=== PATIENT | female | born 2000 | race Caucasian/White ===

== ENCOUNTER 2019-07-30 06:39 | Inpatient (IN) ==
[2019-07-30] MEDS ORDERED: STADOL IV PRN (06:55)
[2019-07-30] MEDS ORDERED: PEPCID IV PRN (06:55)
[2019-07-30] MEDS ORDERED: AMPICILLIN 2 GM in NS 100 ML IV ONE (06:55)
[2019-07-30] MEDS ORDERED: ZOFRAN IV PRN (06:55)
[2019-07-30] MEDS ORDERED: TYLENOL PO PRN (06:55)
[2019-07-30] MEDS ORDERED: PEPCID PO PRN (06:55)
[2019-07-30] MEDS ORDERED: KEFZOL 1 GM/D5W 1 GM/50 ML IVPB IV PRN (06:55)
[2019-07-30] MEDS ORDERED: PEPCID PO ONE (06:55)
[2019-07-30] MEDS ORDERED: REGLAN PO ONE (06:55)
[2019-07-30] MEDS ORDERED: SODIUM CHLORIDE 0.9% INJ SCH (07:00)
[2019-07-30] MEDS ORDERED: PITOCIN 30 UNITS/NS 30 UNIT/500 ML IV.SOLN IV SCH ×2 (07:00→08:30)
[2019-07-30] MEDS ORDERED: LR 1,000 ML IV SCH ×2 (07:00)
[2019-07-30] MEDS ORDERED: XYLOCAINE-MPF 1% INJ ONE (07:07)
[2019-07-30] MEDS ORDERED: PITOCIN ONE (07:31)
[2019-07-30] MEDS ORDERED: MORPHINE IV ONE (08:16)
[2019-07-30 08:23] LABS: URINE SOURCE VOIDED
[2019-07-30] MEDS ORDERED: BENADRYL IV PRN (08:24)
[2019-07-30] MEDS ORDERED: ATARAX PO PRN (08:24)
[2019-07-30] MEDS ORDERED: NORCO-10 PO PRN (08:24)
[2019-07-30] MEDS ORDERED: NORCO-5 PO PRN (08:24)
[2019-07-30] MEDS ORDERED: M-M-R II VACCINE SUBQ ONE (08:24)
[2019-07-30] MEDS ORDERED: HYDROXYZINE IM PRN (08:24)
[2019-07-30] MEDS ORDERED: XYLOCAINE-MPF 1% INJ PRN (08:24)
[2019-07-30] MEDS ORDERED: BOOSTRIX VACCINE IM ONE (08:24)
[2019-07-30] MEDS ORDERED: PERI MEDS (DERMOPLAST/NUPERCAINAL/TUCKS) MISC PRN (08:24)
[2019-07-30] MEDS ORDERED: MINERAL OIL PO PRN (08:24)
[2019-07-30] MEDS ORDERED: PITOCIN IM PRN (08:24)
[2019-07-30] MEDS ORDERED: CYTOTEC PO PRN (08:24)
[2019-07-30] MEDS ORDERED: BENADRYL PO PRN (08:24)
[2019-07-30] MEDS ORDERED: AMBIEN PO PRN (08:24)
[2019-07-30] MEDS ORDERED: PITOCIN 20 UNITS/NS 20 UNITS/1,000 ML IV.SOLN IV SCH (08:30)
[2019-07-30 08:44] LABS: BASO# 0.03 X1000 (0.0-0.2); BASO% 0.1 % (0.0-0.8); EOS# 0.03 X1000 (0.0-0.7); EOS% 0.1 % (0.0-10.0); HEMATOCRIT 33.4 % (37.0-47.0); HEMOGLOBIN 11.2 g/dL (12.0-16.0); IMM GRAN# 0.11 X1000 (0.0-0.04); IMM GRAN% 0.4 % (0.0-0.5); LYMPH# 1.67 X1000 (1.2-3.4); LYMPH% 6.6 % (20.5-51.1); MCH 29.9 PG (27-31); MCHC 33.5 g/dL (33-37); MCV 89.3 FL (81-99); MONO# 1.22 X1000 (0.11-0.59); MONO% 4.8 % (1.7-9.3); NEUT# 22.36 X1000 (1.4-6.5); PLT 171 X1000 (130-400); RBC 3.74 XMIL (4.2-5.4); RDW 13.4 % (11.5-14.5); WBC 25.42 X1000 (4.8-10.8)
[2019-07-30 08:55] LABS: UR AMPHETAMINES QUAL NONE DETECTED (NONE DETECT); UR BARBITUATES QUAL NONE DETECTED (NONE DETECT); UR BENZODIAZEPIN QUAL NONE DETECTED (NONE DETECT); UR CANNABINOIDS QUAL NONE DETECTED (NONE DETECT); UR COCAINE QUAL NONE DETECTED (NONE DETECT); UR METHADONE QUAL NONE DETECTED (NONE DETECT); UR OPIATES QUAL NONE DETECTED (NONE DETECT); UR OXYCODONE QUAL NONE DETECTED (NONE DETECT); UR PCP QUAL NONE DETECTED (NONE DETECT)
[2019-07-30 09:05] LABS: BILIRUBIN URINE NEGATIVE (NEGATIVE); BLOOD URINE SMALL (NEGATIVE); COLOR YELLOW; GLUCOSE URINE NEGATIVE (NEGATIVE); KETONE URINE TRACE mg/dL (NEGATIVE); LEUKOCYTES URINE NEGATIVE (NEGATIVE); NITRITE URINE NEGATIVE (NEGATIVE); PROTEIN URINE 50 mg/dL (NEGATIVE); SP GRAVITY URINE 1.043; TURBIDITY URINE CLEAR (CLEAR); UROBILINOGEN URINE 3 mg/dL (NORMAL)
[2019-07-30 09:12] LABS: BANDS 4 % (0-1); EOS 2 % (1-10); LYMPHS 4 % (21-51); MONO 2 % (1-9); SEGS 88 % (42-75)
[2019-07-30] MEDS ORDERED: AMPICILLIN 1 GM in NS 50 ML IV SCH (11:00)
--- NOTE | 2019-07-30 12:46 | HISTORY AND PHYSICAL ---
HISTORY OF PRESENT ILLNESS: The patient is 19-year-old white female, G 2, P 1, 33 and 2/7 weeks, presents with uterine contractions, who was noted at the time of presentation that she was 9 cm dilated. Patient reports that she had contractions the night before, but did not come to labor and delivery until this morning on 07/30/2019. She did not obtain ultrasound dating until 2nd trimester, and other pertinent information was that she is rubella nonimmune. PAST MEDICAL HISTORY: Unremarkable. PAST SURGICAL HISTORY: None. PAST OB HISTORY: G 2, P 1. Her first child was 5 pounds 14 ounces at . [employer] HISTORY: Menarche at age 10. REVIEW OF SYSTEMS: Significant for gastroesophageal reflux disease. FAMILY HISTORY: Diabetes mellitus, high blood pressure and colon cancer. SOCIAL HISTORY: Tobacco use: Half a pack per day. Alcohol use: None. She reports no illegal or illicit medications. MEDICATIONS: vitamins and Tylenol. ALLERGIES: No known drug allergies. PHYSICAL EXAMINATION: VITAL SIGNS: Height 5 feet 4 inches, weight 150 pounds, temperature 96.8 degrees, pulse 100, blood pressure 107/64, respirations 20. heart rate in the 130s with positive accelerations. HEENT: Pupils equal, round, reactive to light and accommodation. Extraocular movements intact. Oropharynx clear. NECK: Supple. No thyromegaly. LUNGS: Clear to auscultation. HEART: Regular rate and rhythm. ABDOMEN: Bowel sounds positive. Soft. The patient did have contractions roughly every 3 minutes. PELVIC: Cervix was 9 cm dilated, completely effaced, and zero station. Artificial rupture of membranes was performed at this time. EXTREMITIES: No clubbing, cyanosis, or edema noted. NEUROLOGIC: Cranial nerves 2-12 grossly intact. Motor 5/5. DTRs 2+ bilaterally. ASSESSMENT: Intrauterine 33 and 2/7 weeks in active labor. PLAN: Plan on IV antibiotics at the present time, and anticipate delivery of a infant. Nursery and behavioral therapy coordinator notified. Anticipate vaginal delivery. cc: Denzel Fucsh III, MD
[2019-07-30] MEDS: MOTRIN PO PRN ×2 (13:16→21:39)
--- NOTE | 2019-07-30 15:17 | OPERATIVE NOTE ---
PROCEDURE DATE: 07/30/2019 PROCEDURE: The patient progressed to complete and pushing. Had spontaneous vaginal delivery of a male infant, 4 pounds 8 ounces with Apgars of 9 and 9 at 0811 hours on 07/30/2019 over intact perineum. Cord blood sample was obtained at that time. Placenta was delivered intact with 3 vessel cord. A nuchal cord x1 was reduced over perineum easily. ESTIMATED BLOOD LOSS: 150 mL. ANESTHESIA: None. COUNTS: All counts were correct x2. Nursery and director medical writing were present for delivery. cc: Denzel Fuchs III, MD
[2019-07-30] MEDS: PERICOLACE PO SCH (21:39)
[2019-07-31 05:42] LABS: BASO# 0.03 X1000 (0.0-0.2); BASO% 0.2 % (0.0-0.8); EOS# 0.19 X1000 (0.0-0.7); EOS% 1.1 % (0.0-10.0); HEMATOCRIT 30.2 % (37.0-47.0); HEMOGLOBIN 9.7 g/dL (12.0-16.0); IMM GRAN# 0.07 X1000 (0.0-0.04); IMM GRAN% 0.4 % (0.0-0.5); LYMPH# 3.14 X1000 (1.2-3.4); LYMPH% 17.7 % (20.5-51.1); MCH 28.9 PG (27-31); MCHC 32.1 g/dL (33-37); MCV 89.9 FL (81-99); MONO# 1.48 X1000 (0.11-0.59); MONO% 8.3 % (1.7-9.3); MPV 12.2 FL (7.4-10.4); NEUT# 12.85 X1000 (1.4-6.5); NEUT% 72.3 % (42.2-75.2); PLT 190 X1000 (130-400); RBC 3.36 XMIL (4.2-5.4); RDW 13.4 % (11.5-14.5); WBC 17.76 X1000 (4.8-10.8)
[2019-07-31] MEDS: MOTRIN PO PRN ×2 (07:39→16:02)
--- NOTE | 2019-07-31 07:57 | OB/GYN PROGRESS NOTE ---
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 Note: Vital Signs - 24 hr 07/30/19 12:00 07/30/19 20:30 07/31/19 00:05 Temperature 98.9 F 98.1 F 97.8 F Pulse Rate 106 H 95 H 76 Respiratory Rate 18 18 16 Blood Pressure 116/63 119/66 108/63 O2 Sat by Pulse Oximetry 94 L 98 97 07/31/19 03:25 07/31/19 07:45 Temperature 97.1 F L 97.4 F L Pulse Rate 72 72 Respiratory Rate 16 18 Blood Pressure 113/64 108/62 O2 Sat by Pulse Oximetry 97 100 Laboratory Results - last 24 hr 07/30/19 07/30/19 07/30/19 07:50 07:50 08:07 WBC 25.42 H RBC 3.74 L Hgb 11.2 L Hct 33.4 L MCV 89.3 MCH 29.9 MCHC 33.5 RDW Std Deviation 13.4 Plt Count 171 MPV 12.0 H Immature Gran % (Auto) 0.4 Neut % (Auto) 88.0 H Lymph % (Auto) 6.6 L [place] % (Auto) 4.8 Eos % (Auto) 0.1 Baso % (Auto) 0.1 Immature Gran # (Auto) 0.11 H Neut # (Auto) 22.36 H Lymph # (Auto) 1.67 [place] # (Auto) 1.22 H Eos # (Auto) 0.03 Baso # (Auto) 0.03 Segmented Neutrophils 88 H Band Neutrophils 4 H Lymphocytes 4 L Monocytes 2 Eosinophils 2 Urine Source Urine Color Urine Turbidity Urine pH Ur Specific [place] Urine Protein Ur Glucose (Stick) Ur Ketones (Stick) Urine Blood Urine Nitrite Urine Bilirubin Urobilinogen Dipstick Urine Leukocytes Urine Opiates Screen NONE DETECTED Ur Oxycodone Screen NONE DETECTED Ur Methadone, Qual NONE DETECTED Ur Barbiturates Screen NONE DETECTED Ur Phencyclidine Scrn NONE DETECTED Ur Amphetamines Screen NONE DETECTED U Benzodiazepines Scrn NONE DETECTED Urine Cocaine Screen NONE DETECTED U Cannabinoids Screen NONE DETECTED RPR NON-REACTIVE 07/30/19 07/31/19 08:07 05:11 WBC 17.76 H RBC 3.36 L Hgb 9.7 L Hct 30.2 L MCV 89.9 MCH 28.9 MCHC 32.1 L RDW Std Deviation 13.4 Plt Count 190 MPV 12.2 H Immature Gran % (Auto) 0.4 Neut % (Auto) 72.3 Lymph % (Auto) 17.7 L [place] % (Auto) 8.3 Eos % (Auto) 1.1 Baso % (Auto) 0.2 Immature Gran # (Auto) 0.07 H Neut # (Auto) 12.85 H Lymph # (Auto) 3.14 [place] # (Auto) 1.48 H Eos # (Auto) 0.19 Baso # (Auto) 0.03 Segmented Neutrophils Band Neutrophils Lymphocytes Monocytes Eosinophils Urine Source VOIDED Urine Color YELLOW Urine Turbidity CLEAR Urine pH 7.0 Ur Specific [place] 1.043 Urine Protein 50 A Ur Glucose (Stick) NEGATIVE Ur Ketones (Stick) TRACE A Urine Blood SMALL A Urine Nitrite NEGATIVE Urine Bilirubin NEGATIVE Urobilinogen Dipstick 3 A Urine Leukocytes NEGATIVE Urine Opiates Screen Ur Oxycodone Screen Ur Methadone, Qual Ur Barbiturates Screen Ur Phencyclidine Scrn Ur Amphetamines Screen U Benzodiazepines Scrn Urine Cocaine Screen U Cannabinoids Screen RPR The pt is doing well. minimal lochia pain well controlled. desires Depo for control. desires circumcision for the baby VSSAF Gen: AAOx3 NAD CV: RRR no g/m/r Lungs: CTAB no w/r/r Abd: +BS soft NT/ND Ext: no c/c/e A: PPD#1 s/p PTD Anemia Elevated WBCs P: Continue pp mgmt
[2019-07-31] MEDS: PERICOLACE PO SCH (21:01)
[2019-08-01] MEDS: MOTRIN PO PRN ×2 (00:11→09:04)
--- NOTE | 2019-08-01 10:08 | OB/GYN PROGRESS NOTE ---
- Subjective PPD 2 of a male. Pt is without complaints. Baby is in the room with Mom and Dad. Fundus is firm and nontender. No calf tenderness. A/P: Baby will not be discharged today. Mom is stable for discharge home. Will discharge Mom and nurses will allow her to stay so baby can room in with Mom. Patient will f/u with Dr Young in 6 weeks. No Rx needed. She will take Motrin for pain if needed. OB Physical Exam - CONSTITUTIONAL General Appearance: appears well, alert, no apparent distress - GASTROINTESTINAL (ABDOMEN) Abdominal Exam: non tender, soft (Fundus is firm and nontender.) Active Medications Generic Name Dose Route Start Last Admin Trade Name Freq PRN Reason Stop Dose Admin Acetaminophen 650 mg 07/30/19 06:55 Tylenol PO Q4-6H PRN PRN Headache Hydrocodone Bitart/Acetaminophen 1 each 07/30/19 08:24 [place]-10 PO Q3-4H PRN PRN Pain (7-10 on Pain Scale) Hydrocodone Bitart/Acetaminophen 1 each 07/30/19 08:24 [place]-5 PO Q3-4H PRN PRN Pain (1-6 on Pain Scale) Benzocaine 1 each 07/30/19 08:24 Barbara Meds (Dermoplast/Nupercainal/Tucks) MISC 3-4XDAY PRN PRN episiotomy/hemorrhoids Butorphanol Tartrate 2 mg 07/30/19 06:55 Stadol IV PRN PRN Pain Diphenhydramine HCl 12.5 mg 07/30/19 08:24 Benadryl IV Q4H PRN PRN Itching Diphenhydramine HCl 25 mg 07/30/19 08:24 Benadryl PO Q4H PRN PRN Itching Famotidine 20 mg 07/30/19 06:55 Pepcid IV Q12H PRN PRN GI upset or indigestion Famotidine 40 mg 07/30/19 06:55 Pepcid PO Q12H PRN PRN GI upset or indigestion Hydroxyzine HCl 50 mg 07/30/19 08:24 Atarax PO Q3-4H PRN PRN Nausea Hydroxyzine HCl 50 mg 07/30/19 08:24 Hydroxyzine IM Q3-4H PRN PRN Nausea Cefazolin Sodium/Dextrose 1 gm in 50 mls @ 100 mls/hr 07/30/19 06:55 Kefzol 1 Gm/D5w IV ONCE PRN PRN SECTION Oxytocin/Sodium Chloride 20 units in 1,000 mls @ 0 mls/hr 07/30/19 08:30 Pitocin 20 Units/Ns IV .Q0M LILLIE As Directed Ibuprofen 800 mg 07/30/19 08:24 08/01/19 09:04 Motrin PO 800 mg Q8H PRN PRN Administration cramping Lidocaine HCl 30 ml 07/30/19 08:24 Xylocaine-Mpf 1% INJ PRN PRN Perineal repair Mineral Oil 30 ml 07/30/19 08:24 Mineral Oil PO PRN PRN Perineal massage Misoprostol 800 microgm 07/30/19 08:24 Cytotec PO PRN PRN Severe bleeding Ondansetron HCl 4 mg 07/30/19 06:55 Zofran IV PRN PRN Nausea Oxytocin 20 unit 07/30/19 08:24 Pitocin IM PRN PRN Severe bleeding Senna/Docusate Sodium 1 each 07/30/19 21:00 07/31/19 21:01 Pericolace PO 1 each QHS LILLIE Administration Sodium Chloride 5 - 10 ml 07/30/19 07:00 Sodium Chloride 0.9% INJ DIRECTED LILLIE Zolpidem Tartrate 10 mg 07/30/19 08:24 Ambien PO HS PRN PRN Sleep
[2019-08-01 10:24] VITALS: BP 122/66
== END 2019-08-01 11:45 | disposition home or self-care (01) | DRG 807 ==
LOC: OPLD 06:39 → LD 06:40
PROVIDERS: ADMIT Obstetrics & Gynecology; ATTEND Obstetrics & Gynecology